=== PATIENT | male | born 1990 | race Two or more races ===

== ENCOUNTER 2022-03-21 01:24 | Inpatient (IN) | payer OTHER ==
[~2022-03-21] VITALS: Ht 182.9 cm; Wt 165.0 kg
[2022-03-21] MEDS ORDERED: LORazepam MDV 2MG/ML 10 ML IV ONE (01:58)
[2022-03-21] MEDS ORDERED: PHENobarbital SODIUM 130 MG/ML VL IV ONE ×4 (02:00→04:15)
[2022-03-21 02:16] LABS: Basophils # (auto) 0 10 ^3/uL (0-0.2); Eosinophils # (auto) 0 10 ^3/uL (0-0.8); Hemoglobin 13.5 g/dL (13.5-17.5); Monocytes # (auto) 0.4 10 ^3/uL (0-1.3)
[2022-03-21 02:18] LABS: Basophils % (auto) 0.7 % (0.0-2.0); Eosinophils % (auto) 0.6 % (0.0-7.0); Hematocrit 41.3 % (41.0-53.0); Lymphocytes % (auto) 21.1 % (10.0-50.0); Mean Corpuscular Hemoglobin 25.4 pg (28.0-32.0); Mean Corpuscular Hgb Conc. 32.8 g/dL (32.0-36.0); Mean Corpuscular Volume 77.5 fL (80.0-100.0); Neutrophils # (auto) 3.1 10 ^3/uL (1.6-8.6); Neutrophils % (auto) 68.6 % (37.0-80.0); Nucleated Red Blood Cells % 0.1 %; Red Blood Cells 5.32 10^6/uL (4.5-5.90); White Blood Cell 4.5 10^3/uL (4.4-10.8)
[2022-03-21 02:34] LABS: Calcium 8.1 mg/dL (8.5-10.1); Potassium 3.6 mmol/L (3.5-5.1); Red Cell Distribution Width 22.9 % (11.8-14.3)
[2022-03-21 02:37] LABS: BUN/Creatinine Ratio 27.2
[2022-03-21 02:40] LABS: Bilirubin, Total 0.2 mg/dL (0.2-1.0); Total Protein 6.9 g/dL (6.4-8.2)
[2022-03-21] MEDS ORDERED: LORazepam 2MG/ML-1ML VIAL IV ONE ×4 (02:45→11:30)
[2022-03-21] MEDS ORDERED: PHENobarbital SODIUM 130 MG/ML VL ONE (03:55)
[2022-03-21] MEDS ORDERED: PHENYTOIN IV DILANTIN 1,500 MG in SODIUM CHL 0.9% 250 ML IV ONE (05:00)
[2022-03-21] MEDS ORDERED: PHENYTOIN SODIUM 50 MG/ML 5ML INJ VIAL IV ONE (05:12)
[2022-03-21] MEDS ORDERED: PHENYTOIN SODIUM 50 MG/ML 2ML VIAL IV ONE ×2 (05:15→05:18)
[2022-03-21] MEDS: D5W/SOD CHL 0.45% 1,000 ML IV SCH ×2 (06:59→17:37)
[2022-03-21] MEDS ORDERED: PHENYTOIN SODIUM 50 MG/ML 2ML VIAL IV SCH (10:00)
[2022-03-21 10:02] LABS: Alcohol, Urine < 3.0 mg/dL (0-10); Amphetamine Screen, Urine NEGATIVE (NEGATIVE); Barbiturate Scree,Urine POSITIVE (NEGATIVE); Benzodiazephine Screen, Urine POSITIVE (NEGATIVE); Cannabinoid Screen, Urine NEGATIVE (NEGATIVE); Cocaine Screen, Urine NEGATIVE (NEGATIVE); Opiate Scree,Urine NEGATIVE (NEGATIVE); Phencyclidine Screen, Urine NEGATIVE (NEGATIVE)
[2022-03-21] MEDS ORDERED: MIDAZOLAM HCL 2MG/2ML 2ml VIAL (1mg/ml) ONE (10:31)
[2022-03-21] MEDS ORDERED: MIDAZOLAM HCL 2MG/2ML 2ml VIAL (1mg/ml) IV ONE ×2 (10:45→11:45)
[2022-03-21] MEDS ORDERED: PHENYTOIN IV DILANTIN 1,000 MG in SODIUM CHL 0.9% 250 ML IV ONE (12:00)
[2022-03-21] MEDS ORDERED: VALPROATE INJ 1,000 MG in SODIUM CHL 0.9% 100 ML IV ONE (12:15)
[2022-03-21] MEDS ORDERED: AMIODARONE 450mg/250ml AE 0 ML IV ONE (15:05)
[2022-03-21 17:22] VITALS: BP 116/79
[2022-03-21] MEDS ORDERED: LORazepam 2MG/ML-1ML VIAL IV PRN (18:30)
[2022-03-21] MEDS ORDERED: PHENobarbital 32.4 MG TAB PO SCH (22:00)
[2022-03-21] MEDS ORDERED: GABAPENTIN 100 MG CAP PO SCH (22:00)
[2022-03-22] MEDS ORDERED: PHENobarbital 32.4 MG TAB PO SCH (07:00)
[2022-03-22] MEDS ORDERED: TOPI25TA43 PO (17:35)
[2022-03-22] MEDS ORDERED: GABA100C9 PO (17:35)
[2022-03-22] MEDS ORDERED: PHEN32.44 PO (17:35)
[2022-03-22] MEDS ORDERED: VALPROATE INJ 500 MG in SODIUM CHL 0.9% 100 ML IV SCH (22:00)
== END 2022-03-21 19:51 | DRG 101 ==
LOC: EDBD → ER 01:24 → EEVIPCON 06:41 → OVERFLOW 06:41 → EAST 17:19
PROVIDERS: ADMIT Internal Medicine; ATTEND Internal Medicine
PROC: 4A10X4Z Monitoring of Central Nervous Electrical Activity, External Approach (ICD-10-PCS; principal; 2022-03-21)
DX: G40.909 Epilepsy, unspecified, not intractable, without status epilepticus (principal); S01.01XA Laceration without foreign body of scalp, initial encounter; W22.01XA Walked into wall, initial encounter; Y93.89 Activity, other specified; Y92.89 Other specified places as the place of occurrence of the external cause; Y99.8 Other external cause status; Z79.899 Other long term (current) drug therapy
CPT/HCPCS: 36415; 70450; 72125; 80053; 80185; 80307; 82962; 85025; 96365; 96366; 96367; 96375; 96376; 99291; G0378; J2250

== ENCOUNTER 2022-03-21 23:02 | Inpatient (IN) | payer OTHER ==
[~2022-03-21] VITALS: Ht 175.3 cm; Wt 170.0 kg
[2022-03-22] MEDS ORDERED: MORPHINE SULFATE INJ 2 MG/ml SYRG IV PRN
[2022-03-22] MEDS ORDERED: NITROGLYCERIN 0.4 MG SL TAB SL PRN
[2022-03-22] MEDS ORDERED: PHENobarbital SODIUM 130 MG/ML VL IV ONE ×2 (00:15→08:00)
[2022-03-22 14:24] LABS: Calcium 8.2 mg/dL (8.5-10.1); Potassium 3.8 mmol/L (3.5-5.1)
[2022-03-22 14:30] LABS: Albumin 3.9 g/dL (3.4-5.0); BUN/Creatinine Ratio 22.4; Bilirubin, Total 0.5 mg/dL (0.2-1.0); Total Protein 6.9 g/dL (6.4-8.2)
[2022-03-22 14:45] LABS: Basophils # (auto) 0 10 ^3/uL (0-0.2); Basophils % (auto) 0.5 % (0.0-2.0); Eosinophils # (auto) 0 10 ^3/uL (0-0.8); Eosinophils % (auto) 0.3 % (0.0-7.0); Hematocrit 42.9 % (41.0-53.0); Hemoglobin 13.8 g/dL (13.5-17.5); Lymphocytes # (auto) 1.2 10 ^3/uL (0.4-5.4); Lymphocytes % (auto) 21.5 % (10.0-50.0); Mean Corpuscular Hemoglobin 25.2 pg (28.0-32.0); Mean Corpuscular Hgb Conc. 32.2 g/dL (32.0-36.0); Mean Corpuscular Volume 78.4 fL (80.0-100.0); Monocytes # (auto) 0.5 10 ^3/uL (0-1.3); Monocytes % (auto) 8.2 % (0.0-12.0); Neutrophils % (auto) 69.5 % (37.0-80.0); Nucleated Red Blood Cells % 0.1 %; Red Blood Cells 5.47 10^6/uL (4.5-5.90); Red Cell Distribution Width 22.5 % (11.8-14.3); White Blood Cell 5.8 10^3/uL (4.4-10.8)
[2022-03-22] MEDS: PHENobarbital 32.4 MG TAB PO SCH ×2 (14:50→21:23)
[2022-03-22] MEDS ORDERED: PHEN32.44 PO (17:35)
[2022-03-22] MEDS ORDERED: TOPI25TA43 PO (17:35)
[2022-03-22] MEDS ORDERED: GABA100C9 PO (17:35)
[2022-03-22] MEDS: VALPROIC ACID 250 MG/5 ML ORAL SOLN PO SCH (21:23)
[2022-03-22 22:00] VITALS: BP 103/65
[2022-03-23 05:00] VITALS: BP 103/68
[2022-03-23] MEDS: PHENobarbital 32.4 MG TAB PO SCH ×3 (06:47→22:17)
[2022-03-23 09:00] VITALS: BP 102/64
[2022-03-23] MEDS: VALPROIC ACID 250 MG/5 ML ORAL SOLN PO SCH ×2 (09:41→22:17)
[2022-03-23 22:00] VITALS: BP 103/66
[2022-03-24] MEDS: PHENobarbital 32.4 MG TAB PO SCH ×2 (05:55→14:33)
[2022-03-24 09:00] VITALS: BP 109/68
[2022-03-24] MEDS: VALPROIC ACID 250 MG/5 ML ORAL SOLN PO SCH (11:30)
[2022-03-24 12:00] VITALS: BP 102/60
[2022-03-24 17:00] VITALS: BP 105/64
[2022-03-24] MEDS ORDERED: GABA100C9 PO (18:50)
[2022-03-24] MEDS ORDERED: VALP1CAP4 PO (18:50)
[2022-03-24] MEDS ORDERED: PHEN32.44 PO (18:50)
[2022-03-24 19:36] VITALS: BP 105/64
== END 2022-03-24 20:45 | disposition home or self-care (01) | DRG 101 ==
LOC: EEVIPCON 23:02 → EDUNIT# 23:02 → ER 23:02 → TELE 23:56 → TELE-EAST 03-22 19:20
PROVIDERS: ADMIT Internal Medicine; ATTEND Internal Medicine
DX: G40.909 Epilepsy, unspecified, not intractable, without status epilepticus (principal); Z20.822 Contact with and (suspected) exposure to COVID-19; Z76.5 Malingerer [conscious simulation]
CPT/HCPCS: 36415; 70551; 71045; 80053; 85025; 93005; 95819; 96374; 96375; G0378

== ENCOUNTER 2022-04-04 16:14 | Inpatient (IN) | payer OTHER ==
[~2022-04-04] VITALS: Ht 182.9 cm; Wt 77.2 kg
[~2022-04-04 16:14] MED LIST: GABA100C9 PO; PHEN32.44 PO; VALP1CAP4 PO
[2022-04-04] MEDS ORDERED: LORazepam 2MG/ML-1ML VIAL IV ONE ×2 (17:15→20:00)
[2022-04-04] MEDS ORDERED: PHENobarbital SODIUM 130 MG/ML VL IM ONE (17:15)
[2022-04-04 18:00] LABS: Basophils # (auto) 0 10 ^3/uL (0-0.2); Eosinophils # (auto) 0 10 ^3/uL (0-0.8); Eosinophils % (auto) 0.1 % (0.0-7.0); Hemoglobin 13.5 g/dL (13.5-17.5); Lymphocytes # (auto) 1.1 10 ^3/uL (0.4-5.4); Monocytes # (auto) 0.6 10 ^3/uL (0-1.3); White Blood Cell 9.6 10^3/uL (4.4-10.8)
[2022-04-04 18:02] LABS: Basophils % (auto) 0.4 % (0.0-2.0); Hematocrit 42.2 % (41.0-53.0); Lymphocytes % (auto) 11.6 % (10.0-50.0); Mean Corpuscular Hemoglobin 25.6 pg (28.0-32.0); Mean Corpuscular Hgb Conc. 31.9 g/dL (32.0-36.0); Mean Corpuscular Volume 80.1 fL (80.0-100.0); Monocytes % (auto) 5.9 % (0.0-12.0); Neutrophils # (auto) 7.9 10 ^3/uL (1.6-8.6); Nucleated Red Blood Cells % 0.1 %; Red Blood Cells 5.26 10^6/uL (4.5-5.90)
[2022-04-04 18:05] LABS: Red Cell Distribution Width 21.4 % (11.8-14.3)
[2022-04-04 18:17] LABS: Albumin 4.2 g/dL (3.4-5.0); Calcium 8.1 mg/dL (8.5-10.1); Potassium 3.8 mmol/L (3.5-5.1)
[2022-04-04 18:18] LABS: BUN/Creatinine Ratio 16.5
[2022-04-04 18:21] LABS: Bilirubin, Total 0.2 mg/dL (0.2-1.0); Total Protein 7.5 g/dL (6.4-8.2)
[2022-04-04] MEDS ORDERED: ACETAMINOPHEN 325 MG TAB PO ONE (18:45)
[2022-04-04] MEDS ORDERED: D5W/SOD CHL 0.45% 1,000 ML IV ONE (19:00)
[2022-04-04] MEDS ORDERED: PHENobarbital 32.4 MG TAB PO SCH (20:15)
[2022-04-04] MEDS ORDERED: LIDOCAINE 1% (LOCAL ANESTH.) PF 5ml SDV ID ONE (21:15)
[2022-04-04] MEDS ORDERED: LIDOCAINE 1% (LOCAL ANESTH.) PF 5ml SDV ONE (21:17)
[2022-04-04 22:35] VITALS: BP 102/65
[2022-04-04] MEDS: GABAPENTIN 400 MG CAP PO SCH (23:59)
[2022-04-04] MEDS: TOPIRAMATE 100 MG TAB PO SCH (23:59)
[2022-04-05 04:39] VITALS: BP 107/63
[2022-04-05] MEDS: GABAPENTIN 400 MG CAP PO SCH ×3 (06:43→22:00)
[2022-04-05] MEDS ORDERED: PHENobarbital 32.4 MG TAB PO SCH ×6 (08:00→22:00)
[2022-04-05] MEDS ORDERED: PHENobarbital 32.4 MG TAB PO ONE ×2 (08:00→17:30)
[2022-04-05 08:30] VITALS: BP 97/60
[2022-04-05 09:00] VITALS: BP 97/60
[2022-04-05] MEDS: MIDAZOLAM HCL 2MG/2ML 2ml VIAL (1mg/ml) IV PRN ×2 (09:35→20:38)
[2022-04-05] MEDS ORDERED: ENOXAPARIN SOD 40 MG/0.4 ML SYRINGE SC ONE (10:00)
[2022-04-05] MEDS: TOPIRAMATE 100 MG TAB PO SCH ×2 (10:30→22:00)
[2022-04-05 13:00] VITALS: BP 115/70
[2022-04-05 17:00] VITALS: BP 111/67
[2022-04-05 22:00] VITALS: BP_SYST 137; BP_SYST 142; BP_DIAS 67; BP_DIAS 92
[2022-04-06 05:00] VITALS: BP 96/62
[2022-04-06] MEDS: GABAPENTIN 400 MG CAP PO SCH ×3 (06:00→21:01)
[2022-04-06 08:00] VITALS: BP 114/75
[2022-04-06] MEDS ORDERED: PHENobarbital 32.4 MG TAB PO SCH ×2 (08:00→22:00)
[2022-04-06 08:45] VITALS: BP 114/75
[2022-04-06] MEDS: TOPIRAMATE 100 MG TAB PO SCH ×2 (09:54→21:01)
[2022-04-06 12:50] VITALS: BP 114/68
[2022-04-06 17:14] VITALS: BP 113/73
[2022-04-06 22:00] VITALS: BP 107/74
[2022-04-07 05:00] VITALS: BP 93/58
[2022-04-07] MEDS: GABAPENTIN 400 MG CAP PO SCH ×2 (06:11→15:19)
[2022-04-07 07:54] VITALS: BP 109/72
[2022-04-07] MEDS ORDERED: PHENobarbital 32.4 MG TAB PO SCH ×3 (08:00→12:00)
[2022-04-07 09:00] VITALS: BP 109/72
[2022-04-07] MEDS: TOPIRAMATE 100 MG TAB PO SCH (09:58)
[2022-04-07 13:00] VITALS: BP 120/73
[2022-04-07 14:37] VITALS: BP 120/73
[2022-04-08] MEDS ORDERED: PHENobarbital 32.4 MG TAB PO SCH ×2 (06:00)
== END 2022-04-07 17:20 | DRG 101 ==
LOC: EEVIPCON 16:14 → ER 16:14 → EDBD 16:14 → OVERFLOW 19:00 → WEST WING 21:40 → TELE-WESTW 04-05 16:56
PROVIDERS: ADMIT Internal Medicine; ATTEND Internal Medicine
DX: G40.909 Epilepsy, unspecified, not intractable, without status epilepticus (principal); G10 Huntington's disease; Z20.822 Contact with and (suspected) exposure to COVID-19; F17.200 Nicotine dependence, unspecified, uncomplicated; Z88.8 Allergy status to other drugs, medicaments and biological substances; Z82.0 Family history of epilepsy and other diseases of the nervous system; Z79.899 Other long term (current) drug therapy
CPT/HCPCS: 36415; 70450; 72125; 80053; 85025; 87081; 93005; 96361; 96372; 96374; G0378; J2250

== ENCOUNTER 2022-07-22 22:47 | Inpatient (IN) | payer OTHER ==
[~2022-07-22] VITALS: Ht 182.9 cm; Wt 76.6 kg
[~2022-07-22 22:47] MED LIST changes: -PHEN32.44 PO
[2022-07-22] MEDS ORDERED: SODIUM CHLORIDE 0.9% 500 ML IV ONE (23:15)
[2022-07-22 23:41] LABS: Basophils # (auto) 0 10 ^3/uL (0-0.2); Nucleated Red Blood Cells % 0.1 %; White Blood Cell 6.7 10^3/uL (4.4-10.8)
[2022-07-22] MEDS ORDERED: LORazepam 2MG/ML-1ML VIAL IV ONE (23:45)
[2022-07-22 23:58] LABS: Albumin 4.3 g/dL (3.4-5.0); BUN/Creatinine Ratio 16.8; Calcium 8.5 mg/dL (8.5-10.1); Potassium 4.1 mmol/L (3.5-5.1)
[2022-07-23] LABS: Bilirubin, Total 0.3 mg/dL (0.2-1.0); Total Protein 7.7 g/dL (6.4-8.2)
[2022-07-23 00:05] LABS: Basophils % (auto) 0.7 % (0.0-2.0); Eosinophils # (auto) 0 10 ^3/uL (0-0.8); Eosinophils % (auto) 0.1 % (0.0-7.0); Hematocrit 44.4 % (41.0-53.0); Hemoglobin 15.1 g/dL (13.5-17.5); Lymphocytes # (auto) 0.8 10 ^3/uL (0.4-5.4); Lymphocytes % (auto) 11.6 % (10.0-50.0); Mean Corpuscular Hemoglobin 28.1 pg (28.0-32.0); Mean Corpuscular Volume 82.8 fL (80.0-100.0); Monocytes # (auto) 0.6 10 ^3/uL (0-1.3); Monocytes % (auto) 8.2 % (0.0-12.0); Neutrophils # (auto) 5.4 10 ^3/uL (1.6-8.6); Neutrophils % (auto) 79.4 % (37.0-80.0); Red Blood Cells 5.36 10^6/uL (4.5-5.90); Red Cell Distribution Width 17.5 % (11.8-14.3)
[2022-07-23] MEDS ORDERED: ACETAMINOPHEN 500 MG TAB PO ONE (01:00)
[2022-07-23] MEDS ORDERED: BACITRACIN TOP OINT 1 UD PKG TOP ONE (02:00)
[2022-07-23] MEDS ORDERED: MORPHINE SULFATE INJ 2 MG/ml SYRG IV PRN (04:00)
[2022-07-23] MEDS ORDERED: NITROGLYCERIN 0.4 MG SL TAB SL PRN (04:00)
[2022-07-23] MEDS: LORazepam 2MG/ML-1ML VIAL IV PRN ×2 (10:36→21:35)
[2022-07-23 17:08] VITALS: BP 124/80
[2022-07-23 17:18] VITALS: BP 124/80
[2022-07-23] MEDS ORDERED: PHEN32.44 PO (19:00)
[2022-07-23] MEDS ORDERED: TOPI100T29 PO (19:01)
[2022-07-23] MEDS ORDERED: BUPR8SUB18 SL (19:02)
[2022-07-23 22:00] VITALS: BP 113/74
[2022-07-23] MEDS: PHENobarbital 32.4 MG TAB PO SCH (22:20)
[2022-07-23] MEDS: TOPIRAMATE 100 MG TAB PO SCH (22:20)
[2022-07-23] MEDS: GABAPENTIN 400 MG CAP PO SCH (22:21)
[2022-07-24 05:00] VITALS: BP 132/82
[2022-07-24 06:31] LABS: Potassium 3.8 mmol/L (3.5-5.1)
[2022-07-24 06:42] LABS: Albumin 3.9 g/dL (3.4-5.0); BUN/Creatinine Ratio 16.7; Bilirubin, Total 0.5 mg/dL (0.2-1.0); Calcium 8.3 mg/dL (8.5-10.1)
[2022-07-24 09:00] VITALS: BP 109/75
[2022-07-24] MEDS: TOPIRAMATE 100 MG TAB PO SCH ×2 (09:36→21:33)
[2022-07-24] MEDS: ENOXAPARIN SOD 40 MG/0.4 ML SYRINGE SC SCH (09:37)
[2022-07-24] MEDS: GABAPENTIN 400 MG CAP PO SCH ×2 (09:37→21:33)
[2022-07-24] MEDS: PHENobarbital 32.4 MG TAB PO SCH ×2 (09:37→21:32)
[2022-07-24 12:56] VITALS: BP_SYST 108; BP_SYST 141; BP_DIAS 71; BP_DIAS 90
[2022-07-24 17:00] VITALS: BP 112/72
[2022-07-24 22:00] VITALS: BP 121/76
[2022-07-25 05:00] VITALS: BP 135/85
[2022-07-25] MEDS: LORazepam 2MG/ML-1ML VIAL IV PRN ×2 (05:17→07:41)
[2022-07-25 09:00] VITALS: BP 148/94
[2022-07-25] MEDS: ENOXAPARIN SOD 40 MG/0.4 ML SYRINGE SC SCH (09:22)
[2022-07-25] MEDS: GABAPENTIN 400 MG CAP PO SCH ×2 (09:22→22:49)
[2022-07-25] MEDS: TOPIRAMATE 100 MG TAB PO SCH ×2 (09:22→22:50)
[2022-07-25] MEDS: PHENobarbital 32.4 MG TAB PO SCH ×2 (09:22→22:50)
[2022-07-25 12:45] VITALS: BP 111/77
[2022-07-25] MEDS ORDERED: TOPIRAMATE 100 MG TAB PO ONE (13:45)
[2022-07-25 17:15] VITALS: BP 116/78
[2022-07-25] MEDS ORDERED: PHENobarbital 32.4 MG TAB PO SCH (21:15)
[2022-07-25 22:00] VITALS: BP 116/79
[2022-07-25] MEDS: busPIRone HCL 10 MG TAB PO SCH (22:48)
[2022-07-26 05:00] VITALS: BP 109/74
[2022-07-26 05:33] LABS: Calcium 8.3 mg/dL (8.5-10.1); Potassium 4.2 mmol/L (3.5-5.1)
[2022-07-26 05:39] LABS: Albumin 3.7 g/dL (3.4-5.0); BUN/Creatinine Ratio 21.1; Bilirubin, Total 0.5 mg/dL (0.2-1.0); Total Protein 6.8 g/dL (6.4-8.2)
[2022-07-26] MEDS: GABAPENTIN 400 MG CAP PO SCH ×3 (06:54→22:46)
[2022-07-26] MEDS ORDERED: PHENobarbital 32.4 MG TAB PO SCH (07:00)
[2022-07-26 09:14] VITALS: BP 110/76
[2022-07-26] MEDS: ENOXAPARIN SOD 40 MG/0.4 ML SYRINGE SC SCH (09:53)
[2022-07-26] MEDS: TOPIRAMATE 100 MG TAB PO SCH ×2 (09:53→22:46)
[2022-07-26] MEDS: busPIRone HCL 10 MG TAB PO SCH ×2 (09:55→22:47)
[2022-07-26] MEDS: PHENobarbital 32.4 MG TAB PO SCH ×2 (12:06→22:46)
[2022-07-26 13:00] VITALS: BP 130/56
[2022-07-26 16:39] VITALS: BP 110/75
[2022-07-26] MEDS ORDERED: buPROPion HCL 75 MG TAB PO SCH ×2 (19:00)
[2022-07-26 22:00] VITALS: BP 123/79
[2022-07-27 05:00] VITALS: BP 109/70
[2022-07-27] MEDS: buPROPion HCL 75 MG TAB PO SCH ×2 (06:14→18:16)
[2022-07-27] MEDS: GABAPENTIN 400 MG CAP PO SCH ×3 (06:14→21:20)
[2022-07-27 09:25] VITALS: BP 102/67
[2022-07-27] MEDS: ENOXAPARIN SOD 40 MG/0.4 ML SYRINGE SC SCH (09:44)
[2022-07-27] MEDS: TOPIRAMATE 100 MG TAB PO SCH ×2 (09:46→21:21)
[2022-07-27] MEDS: PHENobarbital 32.4 MG TAB PO SCH ×3 (09:46→21:19)
[2022-07-27] MEDS: busPIRone HCL 10 MG TAB PO SCH ×2 (09:46→21:20)
[2022-07-27 13:00] VITALS: BP 116/73
[2022-07-27 17:00] VITALS: BP 110/70
[2022-07-27 20:10] VITALS: BP 120/78
[2022-07-27 22:25] VITALS: BP 120/78
[2022-07-28 05:46] VITALS: BP 108/76
[2022-07-28] MEDS: buPROPion HCL 75 MG TAB PO SCH ×2 (06:45→19:06)
[2022-07-28 09:18] VITALS: BP 121/84
[2022-07-28] MEDS: busPIRone HCL 10 MG TAB PO SCH (09:39)
[2022-07-28] MEDS: GABAPENTIN 400 MG CAP PO SCH (09:39)
[2022-07-28] MEDS: PHENobarbital 32.4 MG TAB PO SCH (09:39)
[2022-07-28] MEDS: ENOXAPARIN SOD 40 MG/0.4 ML SYRINGE SC SCH (09:39)
[2022-07-28] MEDS: TOPIRAMATE 100 MG TAB PO SCH (09:39)
[2022-07-28 13:00] VITALS: BP 116/71
[2022-07-28 17:13] VITALS: BP 121/75
[2022-07-28] MEDS ORDERED: PHEN32.44 PO (17:59)
[2022-07-28] MEDS ORDERED: GABA400C11 PO (17:59)
[2022-07-28] MEDS ORDERED: BUSP10TA31 PO (17:59)
[2022-07-28] MEDS ORDERED: TOPI100T29 PO (17:59)
[2022-07-28] MEDS ORDERED: BUPR75TA10 PO (17:59)
== END 2022-07-28 19:50 | DRG 605 ==
LOC: EDBD 22:47 → EEVIPCON 22:47 → ER 22:47 → OVERFLOW 07-23 03:55 → CENTRAL 07-23 16:57
PROVIDERS: ADMIT Internal Medicine; ATTEND Internal Medicine
PROC: 0HQ0XZZ Repair Scalp Skin, External Approach (ICD-10-PCS; principal; 2022-07-23)
DX: S01.01XA Laceration without foreign body of scalp, initial encounter (principal); G40.401 Other generalized epilepsy and epileptic syndromes, not intractable, with status epilepticus; F31.9 Bipolar disorder, unspecified; F41.9 Anxiety disorder, unspecified; W18.39XA Other fall on same level, initial encounter; B18.2 Chronic viral hepatitis C; Z20.822 Contact with and (suspected) exposure to COVID-19; Z88.8 Allergy status to other drugs, medicaments and biological substances; Z87.891 Personal history of nicotine dependence; Z79.899 Other long term (current) drug therapy; Z82.0 Family history of epilepsy and other diseases of the nervous system; Z86.19 Personal history of other infectious and parasitic diseases; Z76.5 Malingerer [conscious simulation]; Y93.89 Activity, other specified; Y92.89 Other specified places as the place of occurrence of the external cause; Y99.8 Other external cause status
CPT/HCPCS: 12002; 36415; 71045; 80053; 80184; 84484; 85025; 87426; 93005; 96361; 96372; 96374; G0378

== ENCOUNTER 2022-10-10 23:52 | Inpatient (IN) | payer OTHER ==
[~2022-10-10] VITALS: Ht 185.4 cm; Wt 80.0 kg
[~2022-10-10 23:52] MED LIST changes: +BUPR75TA10 PO; +BUSP10TA31 PO; -GABA100C9 PO; +GABA400C11 PO; +PHEN32.44 PO; +TOPI100T29 PO; -VALP1CAP4 PO
[2022-10-11] MEDS ORDERED: LORazepam 2MG/ML-1ML VIAL IM ONE (00:15)
[2022-10-11] MEDS ORDERED: LORazepam 2MG/ML-1ML VIAL ONE (00:17)
[2022-10-11 01:11] LABS: Basophils # (auto) 0 10 ^3/uL (0-0.2); Basophils % (auto) 0.8 % (0.0-2.0); Eosinophils # (auto) 0 10 ^3/uL (0-0.8); Eosinophils % (auto) 0.9 % (0.0-7.0); Hematocrit 42.3 % (41.0-53.0); Hemoglobin 14.3 g/dL (13.5-17.5); Lymphocytes # (auto) 1.6 10 ^3/uL (0.4-5.4); Lymphocytes % (auto) 28.7 % (10.0-50.0); Mean Corpuscular Hemoglobin 28.6 pg (28.0-32.0); Mean Corpuscular Hgb Conc. 33.8 g/dL (32.0-36.0); Mean Corpuscular Volume 84.7 fL (80.0-100.0); Monocytes # (auto) 0.4 10 ^3/uL (0-1.3); Monocytes % (auto) 8.3 % (0.0-12.0); Neutrophils # (auto) 3.3 10 ^3/uL (1.6-8.6); Neutrophils % (auto) 61.3 % (37.0-80.0); Red Cell Distribution Width 14.7 % (11.8-14.3); White Blood Cell 5.4 10^3/uL (4.4-10.8)
[2022-10-11 01:27] LABS: INR 1.08 (0.9-1.15); Partial Thromboplastin Time 28.8 sec (24.6-33.4)
[2022-10-11 01:29] LABS: Albumin 3.7 g/dL (3.4-5.0); BUN/Creatinine Ratio 26.7; Calcium 7.9 mg/dL (8.5-10.1); Magnesium 1.8 mg/dL (1.6-2.6); Potassium 3.9 mmol/L (3.5-5.1)
[2022-10-11 01:32] LABS: Bilirubin, Total 0.4 mg/dL (0.2-1.0); Total Protein 6.7 g/dL (6.4-8.2)
[2022-10-11] MEDS ORDERED: ACETAMINOPHEN 325 MG TAB PO PRN (04:30)
[2022-10-11] MEDS ORDERED: ONDANSETRON HCL 4 MG/2 ML VIAL IV PRN (04:30)
[2022-10-11] MEDS ORDERED: HYDROcodone-ACET 5/325MG TAB PO PRN (04:30)
[2022-10-11] MEDS ORDERED: DOCUSATE SOD 100 MG CAP PO PRN (04:30)
[2022-10-11] MEDS ORDERED: NITROGLYCERIN 0.4 MG SL TAB SL PRN (05:30)
[2022-10-11] MEDS ORDERED: MORPHINE SULFATE INJ 2 MG/ml SYRG IV PRN (05:30)
[2022-10-11] MEDS: SODIUM CHLOR 0.9% PF (SALINE LOCK) 10ML VIAL/SYR IV SCH ×2 (05:56→13:31)
[2022-10-11] MEDS: LORazepam 2MG/ML-1ML VIAL IV PRN ×2 (06:56→13:27)
[2022-10-11 07:36] LABS: Basophils # (auto) 0 10 ^3/uL (0-0.2); Basophils % (auto) 0.7 % (0.0-2.0); Eosinophils # (auto) 0.1 10 ^3/uL (0-0.8); Eosinophils % (auto) 1.4 % (0.0-7.0); Hematocrit 41.4 % (41.0-53.0); Hemoglobin 14.1 g/dL (13.5-17.5); Lymphocytes # (auto) 1.8 10 ^3/uL (0.4-5.4); Lymphocytes % (auto) 36.1 % (10.0-50.0); Mean Corpuscular Hemoglobin 28.9 pg (28.0-32.0); Monocytes # (auto) 0.5 10 ^3/uL (0-1.3); Monocytes % (auto) 9.3 % (0.0-12.0); Neutrophils # (auto) 2.6 10 ^3/uL (1.6-8.6); Neutrophils % (auto) 52.5 % (37.0-80.0); Nucleated Red Blood Cells % 0.1 %; Red Blood Cells 4.87 10^6/uL (4.5-5.90); Red Cell Distribution Width 15.1 % (11.8-14.3); White Blood Cell 4.9 10^3/uL (4.4-10.8)
[2022-10-11 07:45] LABS: Albumin 3.5 g/dL (3.4-5.0); Calcium 7.9 mg/dL (8.5-10.1)
[2022-10-11 07:49] LABS: BUN/Creatinine Ratio 25.7; Bilirubin, Total 0.3 mg/dL (0.2-1.0); Total Protein 6.6 g/dL (6.4-8.2)
[2022-10-11] MEDS ORDERED: TOPIRAMATE 100 MG TAB PO SCH (10:00)
[2022-10-11] MEDS ORDERED: D5W/SOD CHL 0.45%/KCL 20MEQ 1,000 ML IV SCH (12:15)
[2022-10-11 19:40] VITALS: BP 118/79
[2022-10-11] MEDS ORDERED: PHENobarbital 32.4 MG TAB PO SCH (22:00)
== END 2022-10-11 20:00 | disposition left against medical advice (07) | DRG 101 ==
LOC: ER 23:52 → EDBD 23:52 → TELE 10-11 05:17 → EEVIPCON 10-11 05:17
PROVIDERS: ADMIT Nurse Practitioner Family; ATTEND Internal Medicine
DX: G40.909 Epilepsy, unspecified, not intractable, without status epilepticus (principal); Z53.29 Procedure and treatment not carried out because of patient's decision for other reasons; S01.01XA Laceration without foreign body of scalp, initial encounter; W22.8XXA Striking against or struck by other objects, initial encounter; Z20.822 Contact with and (suspected) exposure to COVID-19; Y93.89 Activity, other specified; Y92.89 Other specified places as the place of occurrence of the external cause; Z82.0 Family history of epilepsy and other diseases of the nervous system; Z79.899 Other long term (current) drug therapy; Z87.891 Personal history of nicotine dependence; Y99.8 Other external cause status; Z88.8 Allergy status to other drugs, medicaments and biological substances
CPT/HCPCS: 36415; 70450; 71045; 72125; 80053; 80184; 80320; 83735; 84484; 85025; 85610; 85730; 87426; 96372; G0378

== ENCOUNTER 2022-11-02 02:02 | Inpatient (IN) | payer OTHER ==
[~2022-11-02] VITALS: Ht 172.7 cm; Wt 74.4 kg
[2022-11-02] MEDS ORDERED: LORazepam 2MG/ML-1ML VIAL ONE (02:53)
[2022-11-02] MEDS ORDERED: LORazepam 2MG/ML-1ML VIAL IV ONE ×2 (02:53→04:00)
[2022-11-02] MEDS ORDERED: LACTATED RINGER'S 1,000 ML IV ONE ×2 (03:15→06:00)
[2022-11-02 03:50] LABS: Basophils # (auto) 0 10 ^3/uL (0-0.2); Basophils % (auto) 0.5 % (0.0-2.0); Eosinophils # (auto) 0 10 ^3/uL (0-0.8); Eosinophils % (auto) 0.4 % (0.0-7.0); Hematocrit 36.5 % (41.0-53.0); Hemoglobin 12.9 g/dL (13.5-17.5); Lymphocytes % (auto) 22.5 % (10.0-50.0); Mean Corpuscular Hemoglobin 29.8 pg (28.0-32.0); Mean Corpuscular Hgb Conc. 35.5 g/dL (32.0-36.0); Monocytes # (auto) 0.3 10 ^3/uL (0-1.3); Monocytes % (auto) 7.1 % (0.0-12.0); Neutrophils # (auto) 3.2 10 ^3/uL (1.6-8.6); Neutrophils % (auto) 69.5 % (37.0-80.0); Nucleated Red Blood Cells % 0.1 %; Red Blood Cells 4.35 10^6/uL (4.5-5.90); Red Cell Distribution Width 15.9 % (11.8-14.3); White Blood Cell 4.6 10^3/uL (4.4-10.8)
[2022-11-02 04:04] LABS: INR 1.01 (0.9-1.15); Partial Thromboplastin Time 29.7 sec (24.6-33.4)
[2022-11-02 04:06] LABS: Albumin 3.5 g/dL (3.4-5.0); Anion Gap 5 (5-15); Blood Alcohol < 3.0 mg/dL (0-5); Blood Urea Nitrogen 19 mg/dL (7-18); Calcium 8.1 mg/dL (8.5-10.1); Carbon Dioxide 25 mmol/L (21-32); Chloride 109 mmol/L (98-107); Glucose 92 mg/dL (74-106); Lipase 123 U/L (73-393); Potassium 4.1 mmol/L (3.5-5.1); Sodium 139 mmol/L (136-145)
[2022-11-02 04:08] LABS: Alanine Aminotransferase 52 U/L (16-61); Aspartate Aminotransferase 29 U/L (15-37); BUN/Creatinine Ratio 23.8; GFR African American 143 mL/min; GFR Non-African American 118 mL/min
[2022-11-02 04:09] LABS: Alkaline Phosphatase 75 U/L (45-117); Bilirubin, Total 0.2 mg/dL (0.2-1.0); Total Protein 6.5 g/dL (6.4-8.2)
[2022-11-02] MEDS ORDERED: TOPIRAMATE 100 MG TAB PO ONE (05:15)
[2022-11-02] MEDS ORDERED: LORazepam 2MG/ML-1ML VIAL IV PRN (07:15)
[2022-11-02] MEDS ORDERED: GABAPENTIN 400 MG CAP PO SCH ×3 (10:00→22:00)
[2022-11-02] MEDS: PHENobarbital 32.4 MG TAB PO SCH ×2 (10:45→10:46)
[2022-11-02 14:35] VITALS: BP 119/75
[2022-11-02 17:00] VITALS: BP 108/66
[2022-11-02] MEDS ORDERED: ACETAMINOPHEN 325 MG TAB PO PRN (17:15)
[2022-11-02] MEDS ORDERED: TOPIRAMATE 100 MG TAB PO SCH ×2 (18:00→18:30)
[2022-11-02] MEDS ORDERED: PHENobarbital 32.4 MG TAB PO SCH ×2 (18:30→22:00)
[2022-11-03 05:00] VITALS: BP 119/77
[2022-11-03] MEDS ORDERED: TOPIRAMATE 100 MG TAB PO SCH (06:00)
== END 2022-11-03 06:50 | disposition left against medical advice (07) | DRG 101 ==
LOC: EDBD 02:02 → ER 02:02 → EEVIPCON 07:07 → OVERFLOW 07:07 → CENTRAL 14:30
PROVIDERS: ADMIT Internal Medicine; ATTEND Internal Medicine
DX: G40.909 Epilepsy, unspecified, not intractable, without status epilepticus (principal); Z20.822 Contact with and (suspected) exposure to COVID-19; E86.0 Dehydration; S01.01XA Laceration without foreign body of scalp, initial encounter; R79.89 Other specified abnormal findings of blood chemistry; F17.200 Nicotine dependence, unspecified, uncomplicated; Z53.29 Procedure and treatment not carried out because of patient's decision for other reasons; S09.90XA Unspecified injury of head, initial encounter; X58.XXXA Exposure to other specified factors, initial encounter; Z80.3 Family history of malignant neoplasm of breast; Z82.0 Family history of epilepsy and other diseases of the nervous system; Z79.899 Other long term (current) drug therapy; Y93.89 Activity, other specified; Y92.89 Other specified places as the place of occurrence of the external cause; Y99.8 Other external cause status
CPT/HCPCS: 36415; 70450; 72125; 73030; 80053; 80320; 82310; 82553; 83690; 83880; 84484; 85025; 85610; 85730; 87340; 87426; 96361; 96374; G0378

== ENCOUNTER 2022-11-21 03:36 | Emergency (ER) | payer OTHER ==
[~2022-11-21] VITALS: Ht 175.3 cm; Wt 72.7 kg
[2022-11-21] MEDS ORDERED: LORazepam 2MG/ML-1ML VIAL ONE (03:53)
[2022-11-21] MEDS ORDERED: LORazepam 2MG/ML-1ML VIAL IM ONE (03:53)
[2022-11-21] MEDS ORDERED: LIDOCAINE 1% HCL (LOCAL ANESTH.) INJ 20ML MDV IJ ONE (04:00)
[2022-11-21 04:26] LABS: Basophils # (auto) 0 10 ^3/uL (0-0.2); Basophils % (auto) 0.4 % (0.0-2.0); Eosinophils # (auto) 0 10 ^3/uL (0-0.8); Eosinophils % (auto) 0.3 % (0.0-7.0); Hemoglobin 13.2 g/dL (13.5-17.5); Lymphocytes # (auto) 1.5 10 ^3/uL (0.4-5.4); Mean Corpuscular Hgb Conc. 34.6 g/dL (32.0-36.0); Mean Corpuscular Volume 86.5 fL (80.0-100.0); Monocytes # (auto) 0.4 10 ^3/uL (0-1.3); Monocytes % (auto) 7.9 % (0.0-12.0); Neutrophils # (auto) 3.3 10 ^3/uL (1.6-8.6); Neutrophils % (auto) 63.4 % (37.0-80.0); Nucleated Red Blood Cells % 0.1 %; Red Blood Cells 4.39 10^6/uL (4.5-5.90); Red Cell Distribution Width 16.5 % (11.8-14.3); White Blood Cell 5.2 10^3/uL (4.4-10.8)
[2022-11-21 04:44] LABS: Albumin 3.6 g/dL (3.4-5.0); Calcium 7.9 mg/dL (8.5-10.1); Potassium 3.9 mmol/L (3.5-5.1)
[2022-11-21 04:47] LABS: BUN/Creatinine Ratio 25.5 (10.0-20.0); Bilirubin, Total 0.2 mg/dL (0.2-1.0); Total Protein 6.9 g/dL (6.4-8.2)
[2022-11-21 06:00] VITALS: BP 114/79
== END 2022-11-21 06:58 | disposition home or self-care (01) ==
LOC: EDBD 03:36 → ER 03:36
DX: S01.01XA Laceration without foreign body of scalp, initial encounter (principal); G40.909 Epilepsy, unspecified, not intractable, without status epilepticus; X58.XXXA Exposure to other specified factors, initial encounter; Y93.89 Activity, other specified; Y92.89 Other specified places as the place of occurrence of the external cause; Y99.8 Other external cause status
CPT/HCPCS: 36415; 70450; 70486; 72125; 80053; 82962; 85025; 96372; 99285; J2060; 93005